=== PATIENT | male | born 1990 | race African-American/Black ===

== ENCOUNTER 2023-11-28 18:30 | Emergency (ER) | payer SELFPAY ==
[~2023-11-28] VITALS: Ht 182.9 cm; Wt 82.0 kg
[2023-11-28 18:36] VITALS: BP 150/102; PULSE 121; RESP 16; TEMP 97.8; O2SAT 100
[2023-11-28] MEDS ORDERED: KETOROLAC 60MG/2ML VIAL IM STA (19:06)
[2023-11-28 19:39] LABS: BASOPHILS % 0.8 % (0.0-2.0); EOSINOPHILS % 1.5 % (0.0-5.0); HEMOGLOBIN. 15.1 g/dL (14.0-18.0); LYMPHOCYTES % 35.4 % (20.0-50.0); MEAN CORPUSCULAR HEMOGLOBIN 31.9 pg (28.0-32.0); MEAN CORPUSCULAR HGB CONC 33.5 g/dL (31.0-37.0); MEAN CORPUSCULAR VOLUME 95.2 fL (80.0-94.0); MEAN PLATELET VOLUME 7.3 fl (7.4-10.4); MONOCYTES % 5.5 % (2.0-8.0); NEUTROPHILS % 56.8 % (40.0-76.0); PLATELET 293 x1000/uL (130-400); RED BLOOD CELL COUNT 4.73 mill/uL (4.7-6.1); RED CELL DISTRIBUTION WIDTH 13.1 % (11.6-14.6); WHITE BLOOD COUNT 8.6 x1000/uL (4.5-11.0)
[2023-11-28 19:49] LABS: INR 0.9; PROTHROMBIN TIME 10.4 sec (9.6-11.0)
[2023-11-28 19:57] LABS: ALANINE AMINOTRANSFERASE 14 IU/L (10-49); ALBUMIN 5.3 g/dL (3.2-4.8); ASPARTATE AMINOTRANSFERASE 40 IU/L (<34); BILIRUBIN TOTAL 1.1 mg/dL (0.1-1.0); CALCIUM 9.3 mg/dL (8.7-10.4); CARBON DIOXIDE 25 mEq/L (21-32); CHLORIDE 105 mEq/L (98-107); CREATININE 1.1 mg/dL (0.6-1.3); GLUCOSE 100 mg/dL (70-105); POTASSIUM 3.3 mEq/L (3.5-5.1); PROTEIN TOTAL 8.7 g/dL (6.0-8.3); SODIUM 141 mEq/L (136-145); UREA NITROGEN BLOOD 9 mg/dL (9-23)
== END 2023-11-28 23:17 | disposition home or self-care (01) ==
LOC: ER 18:30
DX: R10.9 Unspecified abdominal pain (principal)
CPT/HCPCS: 36415; 74176; 80053; 85025; 99284

== ENCOUNTER 2024-04-03 12:20 | Emergency (ER) | payer SELFPAY ==
[~2024-04-03] VITALS: Ht 182.9 cm; Wt 92.0 kg
[2024-04-03 12:23] VITALS: BP 130/83; PULSE 88; RESP 20; TEMP 98.2; O2SAT 96
[2024-04-03] MEDS: KETOROLAC 30MG/ML VIAL IM STA (13:45)
[2024-04-03] MEDS: ACETAMINOPHEN WITH CODEINE 300/30MG TABLET PO STA (13:45)
[2024-04-03] MEDS ORDERED: NAPR-681 PO (14:11)
[2024-04-03] MEDS ORDERED: CYCL5TAB MT (14:11)
== END 2024-04-03 14:14 | disposition home or self-care (01) ==
LOC: ER 12:20
DX: S86.911A Strain of unspecified muscle(s) and tendon(s) at lower leg level, right leg, initial encounter (principal); X58.XXXA Exposure to other specified factors, initial encounter; Y93.89 Activity, other specified; Y92.89 Other specified places as the place of occurrence of the external cause; Y99.8 Other external cause status
CPT/HCPCS: 73590; 73610; 96372; 99284; J1885; Z7610 ×2

== ENCOUNTER 2024-08-31 20:44 | Emergency (ER) | payer SELFPAY ==
[~2024-08-31] VITALS: Ht 177.8 cm; Wt 91.0 kg
[~2024-08-31 20:44] MED LIST: CYCL5TAB3 MT; NAPR-681 PO
[2024-08-31 21:05] VITALS: O2SAT 98
[2024-08-31 22:45] VITALS: BP 148/109; PULSE 102; RESP 18; TEMP 36.78072; O2SAT 98
== END 2024-08-31 22:48 | disposition home or self-care (01) ==
LOC: ER 20:44
DX: S60.221A Contusion of right hand, initial encounter (principal); I10 Essential (primary) hypertension; X58.XXXA Exposure to other specified factors, initial encounter; Y93.89 Activity, other specified; Y92.89 Other specified places as the place of occurrence of the external cause; Y99.8 Other external cause status
CPT/HCPCS: 73130; 99283

== ENCOUNTER 2025-03-23 17:38 | Emergency (ER) | payer SELFPAY ==
[~2025-03-23] VITALS: Ht 182.9 cm; Wt 78.0 kg
[2025-03-23 17:45] VITALS: O2SAT 99
[2025-03-23] MEDS ORDERED: BACITRACIN ZINC OINT UDPKT TOP ONE (17:45)
[2025-03-23] MEDS ORDERED: LIDOCAINE HCL/EPINEPHRINE 1%-EPI 1:100,000 20ML VIAL INFIL ONE (17:45)
[2025-03-23 18:46] VITALS: BP 149/90; PULSE 100; RESP 16; TEMP 36.8; O2SAT 99
== END 2025-03-23 18:46 | disposition home or self-care (01) ==
LOC: ER 17:38
DX: S51.811A Laceration without foreign body of right forearm, initial encounter (principal); S51.812A Laceration without foreign body of left forearm, initial encounter; Z79.899 Other long term (current) drug therapy; X58.XXXA Exposure to other specified factors, initial encounter; Y93.89 Activity, other specified; Y92.89 Other specified places as the place of occurrence of the external cause; Y99.8 Other external cause status
CPT/HCPCS: 99283; J2004